=== PATIENT | female | born 1975 | race Caucasian/White ===

== ENCOUNTER 2018-02-15 01:50 | Inpatient (IN) | payer MEDICAID, OTHER ==
[2018-02-15] MEDS ORDERED: IBUPROFEN 600 MG TAB PO STA (02:04)
[2018-02-15] MEDS ORDERED: LORazepam 1 MG TAB PO STA (02:04)
[2018-02-15 02:55] LABS: Amphetamine Screen,Urine Not Detected (NotDetected); Barbiturate Screen,Urine Not Detected (NotDetected); Benzodiazepines Screen,Urine Not Detected (NotDetected); Cocaine Screen,Urine Not Detected (NotDetected); Methadone Screen, Urine Not Detected (NotDetected); Opiate Screen,Urine Not Detected (NotDetected); Oxycodone Screen, Urine Not Detected (NotDetected); Phencyclidine Screen,Urine Not Detected (NotDetected); Tricyclic Antidepressant,Urine Not Detected (NotDetected); Urn Cannabinoid Scrn Detected (NotDetected)
--- NOTE | 2018-02-15 03:43 | ED ---
General Adult HPI - General Chief complaint: Psychiatric Symptoms Stated complaint: psych eval Time Seen by Provider: 02/15/18 01:57 Source: patient, RN notes reviewed Mode of arrival: ambulatory Limitations: no limitations - History of Present Illness Initial comments: 42-year-old female presents to the emergency department for a chief complaint of anxiety 2 hours. Patient states she was at home with her when they got into an argument over money. Patient states they were yelling at each other and the police were called. Patient states the left before the police were called. The police did not bring her to the Er at that point. Patient states that then her 18-year-old daughter came home after her curfew. She states she confronted her daughter about being late and got in an altercation. Patient states her daughter told her she was the one that was causing problems in the house. Patient states that she had told her daughter she was done with this and her daughter thought she meant she may harm herself so called the police again. Patient states the same precinct police lieutenant came to the house for the second time and brought her to the emergency department. Patient denies any thoughts of suicide or self-harm at this time. Patient denies any homicidal thoughts or thoughts of harming anyone else. Patient did admit to feeling like she wanted to punch her when they were arguing. Patient does not have any psychiatric diagnoses but states she believes she does have anxiety. She has seen a counselor for this in the past but unfortunately was not given any medications due to insurance problems. Patient has no other complaints at this time including shortness of breath, chest pain, abdominal pain, nausea or vomiting, headache, or visual changes. - Related Data Allergies Allergy/AdvReac Type Severity Reaction Status Date / Time No Known Allergies Allergy Verified 02/15/18 01:55 Review of Systems ROS Statement: Those systems with pertinent positive or pertinent negative responses have been documented in the HPI. ROS Other: All systems not noted in ROS Statement are negative. Past Medical History Past Medical History: No Reported History History of Any Multi-Drug Resistant Organisms: None Reported Past Surgical History: Section, Tonsillectomy Past Psychological History: No Psychological Hx Reported Smoking Status: Former smoker Past Alcohol Use History: Occasional Past Drug Use History: None Reported General Exam Limitations: no limitations General appearance: alert, in no apparent distress Head exam: Present: atraumatic, normocephalic, normal inspection Eye exam: Present: normal appearance. Absent: scleral icterus, conjunctival injection ENT exam: Present: normal exam, mucous membranes moist Neck exam: Present: normal inspection, full ROM. Absent: tenderness, meningismus, lymphadenopathy Respiratory exam: Present: normal lung sounds bilaterally. Absent: respiratory distress, wheezes, rales, rhonchi, stridor Cardiovascular Exam: Present: regular rate, normal rhythm, normal heart sounds. Absent: systolic murmur, diastolic murmur, rubs, gallop, clicks Neurological exam: Present: alert, oriented X3, CN II-XII intact Psychiatric exam: Present: anxious (anxious and tearful). Absent: homicidal ideation, suicidal ideation Course Vital Signs 02/15/18 01:52 Temperature 98.4 F Pulse Rate 121 H Respiratory 28 H Rate Blood Pressure 128/65 O2 Sat by Pulse 98 Oximetry Medical Decision Making - Medical Decision Making 42-year-old female presents to the emergency department by police for a chief complaint of anxiety 2 hours. Patient states she was in an altercation with her as well as her daughter today. She states they're saying she is the one causing problems in the house. Patient is starting to think she is crazy and is the one causing all of the altercations. Patient believes she has a history of anxiety but has not been officially diagnosed or been on any medications. Patient denies any thoughts of suicide or self-harm at this time. Patient did state that she felt like she wanted to punch her when they were arguing but denies any homicidal thoughts or any further thoughts of harming her . Patient is very tearful in the emergency department and is anxious. She was given Ativan and Motrin. Patient was given Ativan for anxiety. She was given Motrin for a mild headache from crying. EPS RN Jeremías did speak with patient's daughter who stated patient did threaten to kill herself in the home. Psychiatry is recommending admission at this time and patient agrees. Patient is signing herself in. - Lab Data Lab Results 02/15/18 02/15/18 Range/Units 02:25 02:25 Urine HCG, Qual Not Detected (Not Detectd) Urine Opiates Screen Not Detected (NotDetected) Ur Oxycodone Screen Not Detected (NotDetected) Urine Methadone Screen Not Detected (NotDetected) Ur Propoxyphene Screen Not Detected (NotDetected) Ur Barbiturates Screen Not Detected (NotDetected) U Tricyclic Antidepress Not Detected (NotDetected) Ur Phencyclidine Scrn Not Detected (NotDetected) Ur Amphetamines Screen Not Detected (NotDetected) U Methamphetamines Scrn Not Detected (NotDetected) U Benzodiazepines Scrn Not Detected (NotDetected) Urine Cocaine Screen Not Detected (NotDetected) U Marijuana (THC) Screen Detected H (NotDetected) Disposition Clinical Impression: Depression Disposition: ADMITTED IP TO THIS HOSP Condition: Good Is patient prescribed a controlled substance at d/c from ED?: No Referrals: Renetta Murphy MD [Primary Care Provider] - 1-2 days Time of Disposition: 03:56
[2018-02-15] MEDS ORDERED: ALPRAZolam 0.25 MG TAB PO PRN (04:10)
[2018-02-15] MEDS ORDERED: NALOXONE 0.4 MG/ML 1 ML VIAL IV PRN (04:10)
[2018-02-15] MEDS ORDERED: ONDANSETRON ODT 4 MG TAB PO PRN (04:13)
[2018-02-15] MEDS ORDERED: MAG HYDROX/AL HYDROX/SIMETH 30 ML CUP PO PRN (04:17)
[2018-02-15] MEDS ORDERED: MAGNESIUM HYDROXIDE 2,400 MG/10 ML CUP PO PRN (04:17)
[2018-02-15] MEDS ORDERED: ACETAMINOPHEN TAB 325 MG TAB PO PRN (04:17)
[2018-02-15] MEDS ORDERED: LORazepam 0.5 MG TAB PO PRN (04:17)
[2018-02-15] MEDS ORDERED: CYCLOBENZAPRINE 5 MG TAB PO PRN ×2 (04:20→04:22)
[2018-02-15 04:57] LABS: Appearance,Urine Cloudy (Clear); Bilirubin,Urine Negative (Negative); Blood,Urine Small (Negative); Color,Urine Yellow; Glucose,Urine (UA) Negative (Negative); Ketones,Urine Negative (Negative); Leukocyte Esterase,Urine Large (Negative); Mucus,Urine Rare /hpf; Nitrite,Urine Negative (Negative); PH, Urine 5.5 (5.0-8.0); Protein,Urine Trace (Negative); RBC,Urine 4 /hpf (0-5); Specific Gravity,Urine 1.014 (1.001-1.035); Squamous Epithelial Cell,Urine 13 /hpf (0-4); Urobilinogen,Urine <2.0 mg/dL (<2.0); WBC,Urine 11 /hpf (0-5)
[2018-02-15 06:00] VITALS: BMI 18.4
[2018-02-15 07:55] LABS: Basophils % (A) 1 %; Eosinophils # (A) 0.1 k/uL (0-0.7); Eosinophils % (A) 1 %; HCT 42.4 % (34.0-46.0); HGB 13.8 gm/dL (11.4-16.0); Lymphocytes # (A) 2.5 k/uL (1.0-4.8); Lymphocytes % (A) 27 %; MCH 27.8 pg (25.0-35.0); MCHC 32.5 g/dL (31.0-37.0); MCV 85.5 fL (80.0-100.0); Mean Platelet Volume 6.2; Monocytes # (A) 0.4 k/uL (0-1.0); Monocytes % (A) 5 %; Neutrophils # (A) 6.1 k/uL (1.3-7.7); Neutrophils % (A) 66 %; Platelet Count 361 k/uL (150-450); RBC 4.96 m/uL (3.80-5.40); RDW 13.3 % (11.5-15.5); WBC 9.2 k/uL (3.8-10.6)
[2018-02-15 08:14] LABS: ALT 23 U/L (9-52); AST 17 U/L (14-36); Albumin 4.4 g/dL (3.5-5.0); Alkaline Phosphatase 46 U/L (38-126); Anion Gap 10 mmol/L; Blood Urea Nitrogen 11 mg/dL (7-17); Carbon Dioxide 25 mmol/L (22-30); Chloride 105 mmol/L (98-107); Glucose 95 mg/dL (74-99); Sodium 140 mmol/L (137-145); Total Bilirubin 0.9 mg/dL (0.2-1.3); Total Protein 7.5 g/dL (6.3-8.2)
[2018-02-15] MEDS: CITALOPRAM HYDROBROMIDE 10 MG TAB PO SCH (11:33)
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
--- NOTE | 2018-02-15 18:07 | P.MDCNMH ---
History of Present Illness H&P Date: 02/15/18 Chief Complaint: Anxiety Patient is a 42-year-old female with known history of anxiety was brought to the hospital by the police due to her agitation at home. Patient says that she' s been in argument with her at home and was noted by her daughter who called the police. She states she confronted her daughter about being late and got in an altercation. Patient states her daughter told her she was the one that was causing problems in the house. Patient states that she had told her daughter she was done with this and her daughter thought she meant she may harm herself so called the police again. Patient states the same vice squad police officer came to the house for the second time and brought her to the emergency department. Patient denies any thoughts of suicide or self-harm at this time. Patient denies any homicidal thoughts or thoughts of harming anyone else. Patient did admit to feeling like she wanted to punch her when they were arguing. Patient does not have any psychiatric diagnoses but states she believes she does have anxiety. She has seen a counselor for this in the past but unfortunately was not given any medications due to insurance problems. Patient has no other complaints at this time including shortness of breath, chest pain, abdominal pain, nausea or vomiting, headache, or visual changes. UDS positive for marijuana Urinalysis showed cloudy, leukocyte esterase positive and evidence of squamous epithelial cells. possible contaminant sample. Denied any dysuria or hematuria. No fever no chills. Review of Systems Constitutional: Patient denies any fever or chills . No generalized weakness or weight loss. Abdomen: Patient denied nausea vomiting and diarrhea and abdominal pain. Cardiovascular: Patient denies any chest pain or short of breath no palpitations. Respiratory: patient denied any cough is from production. No shortness of breath Neurologic: Patient denied any numbness or tingling headache. Musculoskeletal: Patient denies any complaints of joint swelling or deformity. Skin: Negative Psychiatric: Negative Endocrine: No heat or cold intolerance. No recent weight gain. Genitourinary: No dysuria or hematuria. All other 14 point ROS negative except the above Past Medical History Past Medical History: No Reported History History of Any Multi-Drug Resistant Organisms: None Reported Past Surgical History: Section, Tonsillectomy Past Anesthesia/Blood Transfusion Reactions: No Reported Reaction Past Psychological History: No Psychological Hx Reported Smoking Status: Former smoker Past Alcohol Use History: Occasional Past Drug Use History: None Reported, Marijuana Additional Drug Use History / Comment(s): Pt states that she smokes MJ on a social occasion. Patient states that she last smoked it was one week ago. - Past Family History Mother Family Medical History: Cancer Additional Family Medical History / Comment(s): Lung Cancer Father History Unknown: Yes Daughter(s) Family Medical History: No Reported History Medications and Allergies Home Medications Medication Instructions Recorded Confirmed Type Cyclobenzaprine [Flexeril] 5 mg PO TID PRN 02/15/18 02/15/18 History Allergies Allergy/AdvReac Type Severity Reaction Status Date / Time No Known Allergies Allergy Verified 02/15/18 05:34 Physical Exam Vitals: Vital Signs Temp Pulse Pulse Resp BP BP Pulse Ox 02/15/18 05:52 98.7 F 102 H 16 123/82 96 02/15/18 04:48 98.5 F 86 16 117/55 99 02/15/18 01:52 98.4 F 121 H 28 H 128/65 98 Intake and Output 02/15/18 02/15/18 02/15/18 06:59 14:59 22:59 Other: Weight 56.699 kg 56.699 kg PHYSICAL EXAMINATION: Patient is lying in the bed comfortably, no acute distress, awake alert and oriented.. HEENT: Normocephalic. Neck is supple. Pupils reactive. Nostrils clear. Oral cavity is moist. Ears reveal no drainage. Neck reveals no JVD, carotid bruits, or thyromegaly. CHEST EXAMINATION: Trachea is central. Symmetrical expansion. Lung bates clear to auscultation and percussion. CARDIAC: Normal S1, S2 with no gallops. No murmurs ABDOMEN: Soft. Bowel sounds normal. No organomegaly. No abdominal bruits. Extremities: reveal no edema. No clubbing or cyanosis Neurologically awake, alert, oriented x3 with well-coordinated movements. No focal deficits noted Skin: No rash or skin lesions. Psychiatric: Coperative. Nonsuicidal Musculoskeletal: No joint swelling or deformity. Normal range of motion. Cranial Nerve Examination - Cranial Nerves Cranial Nerve I- Olfactory: Intact Cranial Nerve II- Optic: Intact Cranial Nerve III- Oculomotor: Intact Cranial Nerve IV- Trochlear: Intact Cranial Nerve V- Trigeminal: Intact Cranial Nerve - Abducens: Intact Cranial Nerve VII- Facial: Intact Cranial Nerve VIII- Auditory: Intact Cranial Nerve IX- Glossopharyngeal: Intact Cranial Nerve X- Vagus: Intact Cranial Nerve XI- Accessory: Intact Cranial Nerve XII- Hypoglossal: Intact Results CBC & Chem 7: 02/15/18 07:29 08 07:29 Labs: Abnormal Lab Results - Last 24 Hours (Table) 02/15/18 02/15/18 Range/Units 02:25 02:25 Urine Appearance Cloudy H (Clear) Urine Protein Trace H (Negative) Urine Blood Small H (Negative) Ur Leukocyte Esterase Large H (Negative) Urine WBC 11 H (0-5) /hpf Ur Squamous Epith Cells 13 H (0-4) /hpf Urine Mucus Rare H (None) /hpf U Marijuana (THC) Screen Detected H (NotDetected) Assessment and Plan Assessment: Major depression and anxiety with aggressive behavior at home Occasional marijuana use Previous History of smoking Abnormal urine sample. Possible contaminant. Unlikely UTI. No complains of dysuria plan: Patient will be continued on antidepressants as per psychiatric recommendations. Marijuana and smoking cessation has been counseled extensively. Noted for antibiotics at this time. Laboratory data and TSH is within normal limits. Further recommendations based on the clinical course. Time with Patient: Greater than 30
[2018-02-16] MEDS: CITALOPRAM HYDROBROMIDE 10 MG TAB PO SCH (08:29)
--- NOTE | 2018-02-16 12:18 | P.PN ---
Progress Note - Text Progress Note Date: 02/16/18 Interval History: Patient is a 42-year-old female who was seen today and she is reports that she had difficulty sleeping last night. Patient states that she spoke with her but that they really did not discuss any difficulty issues. Patient states that she continues to have problems with the fact that her daughter called the police to have her brought to the hospital. Patient states that she continues to feel correcting her disciplinary actions of her children. Patient states that she continues to have tearful episodes but they are less. Patient continues to feel overwhelmed with how to cope with her daughter, her daughter's behavior. Mental Status: Appearance/Attitude: Patient is casually dressed, makes good eye contact and was cooperative. Behavior: Patient does not exhibit any psychomotor agitation or retardation. Speech/Language: Patient's speech is of normal volume and rhythm and she is spontaneous and coherent Thought Process: Patient is goal-directed there is no evidence of loose association or flight of ideas Thought Content: Patient denies any auditory or visual hallucinations and no delusions or paranoid ideation are elicited. Patient states she still feels overwhelmed by the situation at home with her daughter and her . She states that conversation with her went in the usual fashion. She states she doesn't know how to address how hurt she was by the fact that her daughter called the police on her to bring her to the hospital. She states that she feels that she is being punished by her family. Patient states that she had difficulty sleeping last night and her appetite is improving Suicidal/Homicidal Ideation: Patient denied any current suicidal or homicidal ideation Sensorium/Cognition: Patient is alert and oriented to person, place, and time and her recent and remote memory are grossly intact Mood/Affect: Patient's mood remains depressed, tearful and her affect is appropriate to her mood Insight/Judgment: Patient's insight and judgment are intact Assessment: Patient continues to feel as though she is being punished by her family, doesn't know how to discuss how angry she is with her daughter about calling the police to have her brought to the hospital. Patient states that she still confused about what to do when she returns home regarding disciplining her daughter and her relationship with her . She continues to report feeling overwhelmed, states that she is less tearful is still feels depressed and sad about the situation. Patient slept about 5 hours last night and has been attending groups and activities. Plan: Patient will continue on Celexa 10 mg to target her mood. Patient continues to require hospitalization to stabilize her mood and we anticipate discharge at the beginning of next week
[2018-02-17 07:06] VITALS: RESP 18
[2018-02-17] MEDS: CITALOPRAM HYDROBROMIDE 10 MG TAB PO SCH (08:53)
--- NOTE | 2018-02-17 15:19 | P.PN ---
Progress Note - Text Progress Note Date: 02/17/18 Interval history: Patient reports that she is overall feeling better. She does describe some family stress and would like to do some individual therapy after she is discharged. She has been started on Celexa and does not seem to voice any adverse psychotropic medication side effects. Mental status exam: She is alert and cooperative with the interview. Her speech is fluent, not rapid or pressured. Thought processes organized. Her mood overall seems to be improved. Her affect does show range. She denies any thoughts of harm to self others. No evidence of psychosis or agitation. Plan: Patient will be maintained on current psychotropic medication regimen. We 'll continue to monitor for any adverse side effects to monitor her ongoing response. We'll continue to cover this patient through the weekend.
[2018-02-18] MEDS: CITALOPRAM HYDROBROMIDE 10 MG TAB PO SCH (08:50)
--- NOTE | 2018-02-18 13:07 | P.PN ---
Progress Note - Text Progress Note Date: 02/18/18 Interval history: Patient is seen in cross coverage today again. She says she slept about 6 hours last night. She describes that her mood was depressed some last night because she did not have any visitors but her mood is doing better today. She does not seem to voice any adverse psychotropic medication side effects. She does relate having a heavier menstrual period. Mental status exam: She is alert and cooperative with the interview. Her affect shows range. Her mood she describes is doing better today. She does not verbalize any thoughts of harm to self others. She is not show any evidence of psychosis or agitation. Plan: Patient will be maintained on current psychotropic medication regimen. Continue to monitor her ongoing response to treatment.
[2018-02-19] MEDS: CITALOPRAM HYDROBROMIDE 10 MG TAB PO SCH (08:29)
--- NOTE | 2018-02-19 10:19 | P.PN ---
Progress Note - Text Progress Note Date: 02/19/18 Interval History: Patient is a 42-year-old female who was seen today and she states that she spoke with her daughter and over the weekend and that it went well. She states her is considering counseling with her. She states that her daughter and her had a conversation and she apologized to her daughter. Patient states that she is not feeling tearful, no longer feeling as overwhelmed and is sleeping okay. She states that she is unsure how things will go once she returns home as her daughter leaves next week for college. Patient states that she is feeling more in control but states that she will see once she returns home. She reports no side effects from the medication. Mental Status: Appearance/Attitude: Patient is casually dressed, makes good eye contact and is cooperative. Behavior: Patient does not exhibit any psychomotor agitation or retardation. Speech/Language: Patient's speech is spontaneous of normal volume and rhythm and she is coherent Thought Process: Patient is goal-directed there is no evidence of loose association or flight of ideas Thought Content: Patient denies any auditory or visual hallucinations and no delusions or paranoid ideation or elicited. Patient states that she is feeling more in control and less overwhelmed and states that recent phone conversations with her daughter and have gone well. She states that she feels more in control here but is unsure of how things will go once she returned home she reports no longer having crying spells. Patient reports that she is eating and sleeping well. Suicidal/Homicidal Ideation: Patient denies any current suicidal or homicidal ideation. Sensorium/Cognition: Patient is alert and oriented to person, place, and time and her recent and remote memory grossly intact Mood/Affect: Patient's mood is less depressed and her affect is appropriate Insight/Judgment: Patient's insight and judgment are intact Assessment: Patient states that she is no longer having crying spells, is not feeling as overwhelmed and states that she is sleeping and eating well. She reports that she feels more in control but is unsure how things will go once she returns home, she states that recent phone conversations with her and daughter gone well. She states that her has agreed to marital counseling. Patient states that she and her have not discussed discipline concerns that they have, she states her daughter will be leaving for college in one week. She reports no side effects from the Celexa. Plan: Patient continue on Celexa 10 mg daily, as to have a family meeting today with her , she and I discussed discharge tomorrow.
[2018-02-20 06:23] VITALS: BP 112/69; PULSE 95; TEMP 98.2
[2018-02-20] MEDS: CITALOPRAM HYDROBROMIDE 10 MG TAB PO SCH (08:51)
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
== END 2018-02-20 14:51 | disposition home or self-care (01) | DRG 885 ==
LOC: EC 01:50 → 3MHU 04:13
PROVIDERS: ADMIT Psychiatry & Neurology Psychiatry; ATTEND Psychiatry & Neurology Psychiatry
DX: F32.1 Major depressive disorder, single episode, moderate (principal); F41.9 Anxiety disorder, unspecified; Z79.899 Other long term (current) drug therapy; Z87.891 Personal history of nicotine dependence; Z81.1 Family history of alcohol abuse and dependence; Z81.8 Family history of other mental and behavioral disorders
CPT/HCPCS: 80053; 80306; 81001; 81025; 82075; 84443; 85025; 99285

== ENCOUNTER → 2020-04-10 | Outpatient (CLI) | payer OTHER ==
--- NOTE | 2020-04-10 08:32 | US ---
EXAMINATION TYPE: US abdomen complete DATE OF EXAM: 04/10/2020 COMPARISON: CT 11/10/09 US 11/10/09 CLINICAL HISTORY: R11.0 Nausea, R10.32 LLQ Pain, R19.7 Diarrhea. Intermittent LLQ Pain, nausea x 3 we eks EXAM MEASUREMENTS: Liver Length: 15.8 cm Gallbladder Wall: 0.2 cm CBD: 0.4 cm Spleen: 10.9 cm Right Kidney: 11.3 x 4.0 x 4.5 cm Left Kidney: 11.6 x 5.4 x 5.0 cm Pancreas: wnl Liver: wnl Gallbladder: wnl; folding noted Evidence for sonographic Chacko's sign: No CBD: wnl Spleen: wnl Right Kidney: No hydronephrosis or masses seen Left Kidney: No hydronephrosis or masses seen Upper IVC: wnl Abd Aorta: wnl The visualized liver is homogenous. The intrahepatic portion of the IVC and visualized abdominal aor ta are within normal limits. Common bile duct is unremarkable. The visualized portions of the pancre as are homogenous. The spleen is unremarkable. Kidneys are symmetric and free of hydronephrosis. N o renal lesions are seen. IMPRESSION: No acute or suspicious findings evident.
== END | disposition home or self-care (01) ==
LOC: RADUSWWP 07:17
PROVIDERS: ATTEND Family Medicine
DX: R11.0 Nausea (principal); R10.32 Left lower quadrant pain; R19.7 Diarrhea, unspecified
CPT/HCPCS: 76700

== ENCOUNTER → 2020-10-29 | Outpatient (CLI) | payer OTHER ==
--- NOTE | 2020-10-30 05:31 | MR ---
EXAMINATION TYPE: MR foot RT wo con DATE OF EXAM: 10/29/2020 COMPARISON: None HISTORY: Sprain of tarsometatarsal ligamment, right foot pain Multiplanar multiecho imaging of the right foot was performed without contrast. There is subcutaneous edema and soft tissue swelling in the anterior foot. There is mild increased si gnal in the base of the first metatarsal consistent with a bone bruise. The cuneiform bones appear in tact. There is also slight increased signal in the base of the second metatarsal. On the sagittal T1 images there is evidence of a small chip fracture in the inferior aspect of the base of the second me tatarsal. The toes appear intact. There is small ankle joint effusion. The medial and lateral flexor tendons of the ankle appear intact . I see no evidence of a dislocation. There is joint spaces overall are fairly normal. The plantar fa scia appears normal IMPRESSION: There is small intra-articular chip fracture at the base of the second metatarsal on the plantar aspe ct. This measures almost 6 mm. There is some bone bruise and edema involving the base of the first and second metatarsals. Subcutaneous edema and swelling of the forefoot.
== END | disposition home or self-care (01) ==
LOC: RADMRIMAIN 08:02
PROVIDERS: ATTEND Podiatrist Foot & Ankle Surgery
DX: S93.621A Sprain of tarsometatarsal ligament of right foot, initial encounter (principal)

== ENCOUNTER 2022-03-28 10:34 | Emergency (ER) | payer OTHER ==
[2022-03-28 10:42] VITALS: RESP 18; TEMP 98.5
[2022-03-28] MEDS ORDERED: ONDANSETRON 4 MG/2 ML VIAL IVP STA (10:42)
[2022-03-28] MEDS ORDERED: SODIUM CHLORIDE 0.9% 1,000 ML IV STA (10:42)
[2022-03-28] MEDS ORDERED: KETOROLAC 15 MG/ML 1 ML VIAL IVP STA (10:43)
--- NOTE | 2022-03-28 10:49 | ED ---
General Adult HPI - General Chief complaint: Chest Pain Stated complaint: COVID + Time Seen by Provider: 03/28/22 10:37 Source: patient, EMS, RN notes reviewed, old records reviewed Mode of arrival: EMS Limitations: no limitations - History of Present Illness Initial comments: 46-year-old female presents to the emergency room via EMS after testing positive for coronavirus on Monday. Two other family members also positive for coronavirus. She states had diarrhea on which has not resolved but has not been out of bed related to her fatigue and generalized malaise. She has nausea but denies any vomiting. No further fevers. She states that she has chest pain with cough. She is also on her menses and states gets anemic with her periods. She is also complaining of anxiety at this time. She is a nonsmoker. Denies any other medical history. -: days(s) (7) Location: chest Radiation: non-radiation Severity scale (1-10): 5 Improves with: none Associated Symptoms: chest pain, cough, fever/chills, nausea/vomiting (no vomiting), other (body aches) Treatments Prior to Arrival: none - Related Data Home Medications Medication Instructions Recorded Confirmed No Known Home Medications 03/28/22 03/28/22 Allergies Allergy/AdvReac Type Severity Reaction Status Date / Time No Known Allergies Allergy Verified 03/28/22 11:49 Patient : No Review of Systems ROS Statement: Those systems with pertinent positive or pertinent negative responses have been documented in the HPI. ROS Other: All systems not noted in ROS Statement are negative. Past Medical History Past Medical History: No Reported History History of Any Multi-Drug Resistant Organisms: None Reported Past Surgical History: Section, Tonsillectomy Past Anesthesia/Blood Transfusion Reactions: No Reported Reaction Past Psychological History: No Psychological Hx Reported Smoking Status: Former smoker Past Alcohol Use History: Occasional Past Drug Use History: None Reported, Marijuana - Past Family History Mother Family Medical History: Cancer Additional Family Medical History / Comment(s): Lung Cancer Father History Unknown: Yes Daughter(s) Family Medical History: No Reported History General Exam Limitations: no limitations General appearance: alert, in no apparent distress Head exam: Present: atraumatic, normocephalic Eye exam: Present: PERRL, EOMI. Absent: scleral icterus, conjunctival injection, periorbital swelling, periorbital tenderness ENT exam: Present: mucous membranes moist Neck exam: Present: full ROM. Absent: tenderness, meningismus, lymphadenopathy, thyromegaly Respiratory exam: Present: normal lung sounds bilaterally. Absent: respiratory distress, wheezes, rales, rhonchi, stridor, chest wall tenderness, accessory muscle use Cardiovascular Exam: Present: tachycardia GI/Abdominal exam: Present: soft. Absent: distended, tenderness Extremities exam: Present: full ROM, normal capillary refill. Absent: tenderness, pedal edema Back exam: Present: normal inspection, full ROM. Absent: tenderness, CVA tenderness (R), CVA tenderness (L), rash noted Neurological exam: Present: alert, oriented X3 Psychiatric exam: Present: anxious Skin exam: Present: warm, normal color. 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 Electrolytes show CO2 of 16. UA shows 2+ ketones. Patient was given IV fluids. Chest x-ray shows hyperinflation no acute cardiopulmonary process. EKG shows sinus arrhythmia no acute ST changes. Patient's symptoms are likely related to dehydration with Covid infection. Case discussed with Dr. Pulido. Patient will be discharged home to follow up with her primary care doctor. She was directed to return to the emergency room with any new or concerning symptoms. - Lab Data Result diagrams: 03/28/22 10:44 03/28/22 10:44 Lab Results 03/28/22 03/28/22 03/28/22 Range/Units 10:44 10:44 11:10 WBC 6.6 (3.8-10.6) k/uL RBC 5.46 H (3.80-5.40) m/uL Hgb 13.4 (11.4-16.0) gm/dL Hct 41.9 (34.0-46.0) % MCV 76.7 L (80.0-100.0) fL MCH 24.5 L (25.0-35.0) pg MCHC 32.0 (31.0-37.0) g/dL RDW 14.8 (11.5-15.5) % Plt Count 356 (150-450) k/uL MPV 8.2 Neutrophils % 68 % Lymphocytes % 25 % Monocytes % 3 % Eosinophils % 1 % Basophils % 1 % Neutrophils # 4.5 (1.3-7.7) k/uL Lymphocytes # 1.7 (1.0-4.8) k/uL Monocytes # 0.2 (0-1.0) k/uL Eosinophils # 0.1 (0-0.7) k/uL Basophils # 0.0 (0-0.2) k/uL Microcytosis Slight Sodium 138 (137-145) mmol/L Potassium 4.3 (3.5-5.1) mmol/L Chloride 104 (98-107) mmol/L Carbon Dioxide 16 L (22-30) mmol/L Anion Gap 18 mmol/L BUN 12 (7-17) mg/dL Creatinine 0.63 (0.52-1.04) mg/dL Est GFR (CKD-EPI)AfAm >90 (>60 ml/min/1.73 sqM) Est GFR (CKD-EPI)NonAf >90 (>60 ml/min/1.73 sqM) Glucose 95 (74-99) mg/dL Calcium 9.7 (8.4-10.2) mg/dL Magnesium 1.7 (1.6-2.3) mg/dL Total Bilirubin 0.7 (0.2-1.3) mg/dL AST 28 (14-36) U/L ALT 15 (4-34) U/L Alkaline Phosphatase 83 (38-126) U/L Total Protein 7.8 (6.3-8.2) g/dL Albumin 5.0 (3.5-5.0) g/dL Urine Color Colorless Urine Appearance Clear (Clear) Urine pH 5.5 (5.0-8.0) Ur Specific [place] 1.003 (1.001-1.035) Urine Protein Negative (Negative) Urine Glucose (UA) Negative (Negative) Urine Ketones 2+ H (Negative) Urine Blood Moderate H (Negative) Urine Nitrite Negative (Negative) Urine Bilirubin Negative (Negative) Urine Urobilinogen <2.0 (<2.0) mg/dL Ur Leukocyte Esterase Negative (Negative) Urine RBC <1 (0-5) /hpf Urine WBC 1 (0-5) /hpf Disposition Clinical Impression: Upper respiratory infection, Dehydration, Costochondritis Disposition: HOME SELF-CARE Condition: Good Instructions (If sedation given, give patient instructions): Dehydration (ED), Upper Respiratory Infection (ED), COVID-19 (Coronavirus Disease 2019) (ED) Additional Instructions: Increase your fluid intake. Tylenol and/or Motrin as needed for any pain or discomfort. Eat small frequent meals throughout the day. Return to the emergency room with any new or concerning symptoms. Follow-up with the primary care doctor this week. Is patient prescribed a controlled substance at d/c from ED?: No Referrals: [facility] [[facility]ERR[facility] - 1-2 days Time of Disposition: 12:10
[2022-03-28 11:19] LABS: Basophils % (A) 1 %; Eosinophils # (A) 0.1 k/uL (0-0.7); Eosinophils % (A) 1 %; HCT 41.9 % (34.0-46.0); HGB 13.4 gm/dL (11.4-16.0); Lymphocytes # (A) 1.7 k/uL (1.0-4.8); Lymphocytes % (A) 25 %; MCH 24.5 pg (25.0-35.0); MCV 76.7 fL (80.0-100.0); Mean Platelet Volume 8.2; Microcytosis Slight; Monocytes # (A) 0.2 k/uL (0-1.0); Monocytes % (A) 3 %; Neutrophils # (A) 4.5 k/uL (1.3-7.7); Neutrophils % (A) 68 %; Platelet Count 356 k/uL (150-450); RBC 5.46 m/uL (3.80-5.40); RDW 14.8 % (11.5-15.5); WBC 6.6 k/uL (3.8-10.6)
--- NOTE | 2022-03-28 11:27 | XR ---
EXAMINATION TYPE: XR chest 2V DATE OF EXAM: 03/28/2022 COMPARISON: None HISTORY: 46-year-old female with weakness, cough, shortness of breath TECHNIQUE: AP and lateral views FINDINGS: The cardiomediastinal silhouette, aorta, and pulmonary vasculature are within normal limits. Hyperinf lation. Otherwise, lungs and pleural spaces are clear. IMPRESSION: Hyperinflation which could relate to depth of inspiration or underlying emphysema. Clinically correla te. Otherwise, no acute cardiopulmonary process.
[2022-03-28 11:33] LABS: Appearance,Urine Clear (Clear); Bilirubin,Urine Negative (Negative); Blood,Urine Moderate (Negative); Color,Urine Colorless; Glucose,Urine (UA) Negative (Negative); Ketones,Urine 2+ (Negative); Leukocyte Esterase,Urine Negative (Negative); Nitrite,Urine Negative (Negative); PH, Urine 5.5 (5.0-8.0); Protein,Urine Negative (Negative); RBC,Urine <1 /hpf (0-5); Specific Gravity,Urine 1.003 (1.001-1.035); Urobilinogen,Urine <2.0 mg/dL (<2.0); WBC,Urine 1 /hpf (0-5)
[2022-03-28 11:37] LABS: ALT 15 U/L (4-34); AST 28 U/L (14-36); African American GFR (CKD) >90 (>60 ml/min/1.73 sqM); Alkaline Phosphatase 83 U/L (38-126); Anion Gap 18 mmol/L; Blood Urea Nitrogen 12 mg/dL (7-17); Calcium 9.7 mg/dL (8.4-10.2); Carbon Dioxide 16 mmol/L (22-30); Chloride 104 mmol/L (98-107); Glucose 95 mg/dL (74-99); Magnesium 1.7 mg/dL (1.6-2.3); Non-African American GFR(CKD) >90 (>60 ml/min/1.73 sqM); Potassium 4.3 mmol/L (3.5-5.1); Sodium 138 mmol/L (137-145); Total Bilirubin 0.7 mg/dL (0.2-1.3); Total Protein 7.8 g/dL (6.3-8.2)
[2022-03-28] MEDS ORDERED: ACETAMINOPHEN TAB 500 MG TAB PO STA (12:13)
[2022-03-28 12:55] VITALS: BP 100/80; PULSE 113
== END 2022-03-28 13:00 | disposition home or self-care (01) ==
LOC: EC 10:34
DX: U07.1 COVID-19 (principal); J06.9 Acute upper respiratory infection, unspecified; E86.0 Dehydration; M94.0 Chondrocostal junction syndrome [Tietze]; Z87.891 Personal history of nicotine dependence; F12.90 Cannabis use, unspecified, uncomplicated
CPT/HCPCS: 36415; 93005; 80053; 83735; 85025; 81001; 71046; 99285; J2405; J1885; 96361; 96374; 96375

== ENCOUNTER → 2023-07-25 | Outpatient (CLI) | payer OTHER ==
--- NOTE | 2023-07-25 13:39 | CT ---
EXAMINATION TYPE: CT chest abdomen wo con DATE OF EXAM: 07/25/2023 INDICATION: abnormal weight loss after uterine ablation and chest discomfort COMPARISON: CT abdomen pelvis 11/10/2009, chest x-ray 03/28/2022 CT DLP: 300.50 mGycm CONTRAST: Performed without Oral Contrast TECHNIQUE: Axial images at 5 mm thick sections. Reconstructed images in the coronal plane. Delayed images through the kidneys. FINDINGS: CT CHEST: Portion of the thyroid visualized is normal. Mild pneumonitis type changes are in the peripheral right upper lung field. These are nonspecific. Fo llow-up is recommended. No enlarged mediastinal or hilar adenopathy is evident. The ascending aorta diameter at the level of the main pulmonary artery is 2.4 cm. The main pulmonary artery diameter at the bifurcation is 1.[address] ABDOMEN: Liver: Normal Spleen: Normal Pancreas: Normal Adrenal glands: The adrenal glands are normal. Gallbladder: Normal Kidneys: No masses are evident. No hydronephrosis is present. No cysts are present. No renal stone s are evident. Aorta: Normal Inferior vena cava: Normal. CT upper pelvis: Loops of bowel within the abdomen and upper pelvis are normal. There are loops of bowel which are incompletely distended or lack oral contrast limiting their evaluation. Genitourinary structures: There is limited visualization of the upper uterus. Osseous structures: No suspicious lytic or sclerotic lesions. IMPRESSION: 1. Mild pneumonitis changes right upper lung field. Follow-up noncontrast CT chest in 6 months is rec ommended.
== END | disposition home or self-care (01) ==
LOC: RADCTMAIN 11:47
PROVIDERS: ATTEND Family Medicine
DX: J98.4 Other disorders of lung (principal); M54.50 Low back pain, unspecified; R63.4 Abnormal weight loss
CPT/HCPCS: 71250; 74150

== ENCOUNTER → 2024-09-09 | Outpatient (CLI) | payer OTHER ==
--- NOTE | 2024-09-09 08:55 | CT ---
EXAMINATION TYPE: CT abdomen pelvis w con DATE OF EXAM: 09/09/2024 COMPARISON: Prior CT July 25, 2023 CLINICAL INDICATION: Female, 49 years old with history of R10.9 UNSPECIFIED ABDOMINAL PAIN, Abdominal pain, attention renal vein, h/o LT renal vein compression, TECHNIQUE: CT scan of the abdomen and pelvis is performed with IV Contrast, patient injected with 80 ml mL of Is ovue 300., (none if empty) Oral contrast used: with Oral Contrast (none if empty) CT DLP: 403 mGycm, Automated exposure control for dose reduction was used. FINDINGS: LUNG BASES: No significant abnormality is appreciated. LIVER/GB: No significant abnormality is appreciated. PANCREAS: No significant abnormality is seen. SPLEEN: No significant abnormality is seen. ADRENALS: No significant abnormality is seen. KIDNEYS: Left renal vein noted grossly patent axial images 21 through 24. Symmetric cortical uptake a nd excretion in both kidneys without hydronephrosis BOWEL: Or oral contrast reaches level of rectum. No abnormal small or large bowel dilatation. Low lyi ng cecum into the right pelvis is present. UTERUS/ADNEXA: Uterus is surgically absent or atrophic in appearance. LYMPH NODES: No greater than 1cm abdominal or pelvic lymph nodes are appreciated. OSSEOUS STRUCTURES: No significant abnormality is seen. OTHER: No significant additional abnormality is seen. IMPRESSION: No significant acute finding is seen to account for patient's clinical symptoms. 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 [facility], , 09/09/2024 8:52 AM
== END | disposition home or self-care (01) ==
LOC: RADCTMAIN 05:49
PROVIDERS: ATTEND Internal Medicine Nephrology
DX: R10.9 Unspecified abdominal pain (principal)
CPT/HCPCS: 74177; Q9967